=== PATIENT | female | born 1980 | race Caucasian/White ===

== ENCOUNTER 2021-12-10 14:05 | Emergency (ER) | payer OTHER, SELFPAY ==
--- NOTE | 2021-12-10 14:40 | NUR ---
Patient to ER bed 7 to gown for evaluation. Side rails up. Report given to Beatrice.
--- NOTE | 2021-12-10 14:42 | NUR ---
ER at bedside examining patient.
--- NOTE | 2021-12-10 14:45 | NUR ---
PT A/Ox4 , abulatory Patient is 13-weeks , , C/O vaginal spotting. No relieving or exacerbating factors. denies any fever, chills, nausea, vomiting, diarrhea. Dr Wilson seen pt gave orders.
[2021-12-10 15:19] LABS: BASOPHILS % (AUTO) 0.5 % (0.0-2.0); EOSINOPHILS # (AUTO) 0.1 K/uL (0.0-0.4); HEMATOCRIT 34.5 % (36-48); HEMOGLOBIN 11.6 g/dL (12.0-16.0); LYMPHOCYTES % (AUTO) 18.6 % (20.5-51.5); MEAN CORPUSCULAR HEMOGLOBIN 31 pg (27-31); MEAN CORPUSCULAR HGB CONC 34 % (32-36); MEAN CORPUSCULAR VOLUME 92 fL (79.0-98.0); MONOCYTES # (AUTO) 0.6 K/uL (0.0-1.0); MONOCYTES % (AUTO) 5.9 % (1.7-9.3); PLATELET COUNT (AUTO) 273 K/uL (130-430); RED BLOOD CELL COUNT(AUTO) 3.75 MIL/uL (4.2-6.2); RED CELL DISTRIBUTION WIDTH 12.6 % (9.0-15.0); WHITE BLOOD COUNT (AUTO) 10.8 K/uL (4.8-10.8)
[2021-12-10 16:30] LABS: CALCIUM 8.7 mg/dL (8.4-11.0); CREATININE 0.36 mg/dL (0.55-1.30)
--- NOTE | 2021-12-10 16:58 | NUR ---
1500 pt in us studies
[2021-12-10 17:27] LABS: TOTAL BILIRUBIN 0.1 mg/dL (0.0-1.0)
--- NOTE | 2021-12-10 17:49 | NUR ---
pt back from [facility]
--- NOTE | 2021-12-10 19:03 | NUR ---
Patient given written and verbal discharge instructions and verbalizes understanding. ER MD discussed with patient the results and treatment provided. Patient in stable condition. ID arm band removed. NO RX given. Patient educated on pain management and to follow up with PMD. Pain Scale 0/10 Opportunity for questions provided and answered. Medication side effect fact sheet provided.
[2021-12-10 19:06] VITALS: BP_SYST 112
== END 2021-12-10 19:06 | disposition home or self-care (01) ==
LOC: SED 14:05
DX: O20.9 Hemorrhage in early pregnancy, unspecified (principal); O46.91 Antepartum hemorrhage, unspecified, first trimester; Z3A.13 13 weeks gestation of pregnancy
CPT/HCPCS: 36415; 76801; 76817; 80053; 84702; 85025; 99284